=== PATIENT | male | born 2000 | race American Indian/Alaskan Native ===

== ENCOUNTER 2021-08-04 20:40 | Emergency (ER) | payer SELFPAY ==
--- NOTE | 2021-08-05 06:42 | Emergency Department Report ---
ED General Adult HPI - General Chief complaint: Upper Respiratory Infection Stated complaint: CONGESTION, COUGHING UP BLOOD X 1WK Time Seen by Provider: 08/05/21 06:24 Source: patient Mode of arrival: Ambulatory Limitations: No Limitations - History of Present Illness Initial comments: 20-year-old -[place] male patient without past medical history presents with complaints of cough in congested throat x1 week. He states his cough is productive of mucus. He denies any shortness of breath, chest pain, fever/chills/sweats, loss of taste or smell, or recent known sick contacts. He states he has tried [id number]-[id number] mucus relief without improvement in his symptoms. He denies being vaccinated against COVID-19. No hemoptysis, leg pain/swelling, recent long travel, or history of DVT/PE/cancer per patient. NKDA per patient. - Related Data Previous Rx's Medication Instructions Recorded Last Taken Type Loratadine 10 mg PO QDAY #10 tab 08/05/21 Unknown Rx guaiFENesin [Guaifenesin] 1,200 mg PO BID 7 Days #14 tab 08/05/21 Unknown Rx predniSONE [Deltasone] 20 mg PO BID 3 Days #6 tab 08/05/21 Unknown Rx Allergies Allergy/AdvReac Type Severity Reaction Status Date / Time No Known Allergies Allergy Unverified 08/04/21 23:11 ED Review of Systems ROS: Stated complaint: CONGESTION, COUGHING UP BLOOD X 1WK Other details as noted in HPI Constitutional: denies: chills, diaphoresis, fever, malaise, weakness ENT: congestion. denies: throat pain Respiratory: cough. denies: shortness of breath Cardiovascular: denies: chest pain Gastrointestinal: denies: nausea, vomiting Skin: denies: rash, lesions, change in hair/nails Neurological: denies: headache Hematological/Lymphatic: denies: swollen glands ED Past Medical Hx - Past Medical History Previous Medical History?: Yes Hx Asthma: Yes - Surgical History Past Surgical History?: Yes Additional Surgical History: Abdominal hernia. - Social History Smoking Status: Never Smoker Substance Use Type: None - Medications Home Medications: Home Medications Medication Instructions Recorded Confirmed Last Taken Type Loratadine 10 mg PO QDAY #10 tab 08/05/21 Unknown Rx guaiFENesin [Guaifenesin] 1,200 mg PO BID 7 Days #14 tab 08/05/21 Unknown Rx predniSONE [Deltasone] 20 mg PO BID 3 Days #6 tab 08/05/21 Unknown Rx ED Physical Exam - General Limitations: No Limitations General appearance: alert, in no apparent distress - Head Head exam: Present: atraumatic, normocephalic - Eye Eye exam: Present: normal appearance - ENT ENT exam: Present: normal exam, normal orophraynx - Neck Neck exam: Present: normal inspection, full ROM. Absent: lymphadenopathy - Respiratory Respiratory exam: Present: normal lung sounds bilaterally. Absent: respiratory distress - Cardiovascular Cardiovascular Exam: Present: regular rate, normal rhythm - Extremities Exam Extremities exam: Present: full ROM - Neurological Exam Neurological exam: Present: alert, oriented X3 - Psychiatric Psychiatric exam: Present: normal affect, normal mood - Skin Skin exam: Present: warm, dry, intact, normal color. Absent: rash ED Course Vital Signs 08/04/21 08/05/21 23:04 07:44 Temperature 97.9 F 98.0 F Pulse Rate 71 61 Respiratory 18 18 Rate Blood Pressure 143/76 Blood Pressure 128/75 [Right] O2 Sat by Pulse 100 98 Oximetry ED Medical Decision Making - Radiology Data Radiology results: report reviewed XR chest routine 2V INDICATION / CLINICAL INFORMATION: cough. COMPARISON: None available. FINDINGS: SUPPORT DEVICES: None. HEART /PULMONARY VASCULATURE: No significant abnormality. LUNGS / PLEURA: No significant pulmonary or pleural abnormality. No pneumothorax. ADDITIONAL FINDINGS: No significant additional findings. IMPRESSION: 1. No acute findings. - Medical Decision Making 20-year-old -[place] male patient without past medical history presents with complaints of cough in congested throat x1 week. He states his cough is productive of mucus. He denies any shortness of breath, chest pain, fever/chills/sweats, loss of taste or smell, or recent known sick contacts. He states he has tried chax-pop-wzntrlr mucus relief without improvement in his symptoms. He denies being vaccinated against COVID-19. No hemoptysis, leg pain/swelling, recent long travel, or history of DVT/PE/cancer per patient. NKDA per patient. No strep test indicated via [facility] criteria. Lungs are clear on exam. X-ray is negative for any acute abnormalities. I recommend patient gets outpatient COVID-19 testing within the next 24 hours and self quarantine's until further instructed. Will treat his symptoms as a upper respiratory infection for now conservatively. Recommend follow-up with PCP in 3 to 5 days. He is otherwise well-appearing, his vitals are normal, he is stable for discharge home. Strict return precautions were discussed in detail with patient who verbalizes understanding Critical care attestation.: If time is entered above; I have spent that time in minutes in the direct care of this critically ill patient, excluding procedure time. ED Disposition Clinical Impression: Viral URI with cough Disposition: HOME / SELF CARE / HOMELESS Is pt being admited?: No Condition: Stable Instructions: Viral Respiratory Infection, [id number] Prescriptions: predniSONE [Deltasone] 20 mg PO BID 3 Days #6 tab guaiFENesin [Guaifenesin] 1,200 mg PO BID 7 Days #14 tab Loratadine 10 mg PO QDAY #10 tab Referrals: [facility] [place] [Provider Group] - 3-5 Days Forms: Work/School Release Form(ED)
--- NOTE | 2021-08-05 07:03 | XRay Report ---
XR chest routine 2V INDICATION / CLINICAL INFORMATION: cough. COMPARISON: None available. FINDINGS: SUPPORT DEVICES: None. HEART /PULMONARY VASCULATURE: No significant abnormality. LUNGS / PLEURA: No significant pulmonary or pleural abnormality. No pneumothorax. ADDITIONAL FINDINGS: No significant additional findings. IMPRESSION: 1. No acute findings. Signer Name: Javier Grimm MD Signed: 08/05/2021 6:58 AM Workstation Name: [id number]
[2021-08-05 07:46] VITALS: BP 128/75
== END 2021-08-05 07:46 | disposition home or self-care (01) ==
LOC: ED 20:40
DX: J06.9 Acute upper respiratory infection, unspecified (principal); B97.89 Other viral agents as the cause of diseases classified elsewhere; I10 Essential (primary) hypertension; Z98.890 Other specified postprocedural states; Z79.899 Other long term (current) drug therapy
CPT/HCPCS: 71046; 99283